=== PATIENT | female | born 1935 | race Caucasian/White ===

== ENCOUNTER 2016-07-09 06:56 | Day surgery (SDC) | payer OTHER ==
--- NOTE | ~2016-07-09 | EGD ---
EGD REPORT [place] [address] [place] [address] NAME: PERRY WHEELER : [birth year] STATUS : REG [facility] [place] PAT#: [id number] AGE: 80 ADM/REG DATE : 07/09/16 MR#: [id number] REPORT SERV DATE: 07/09/16 DICTATED BY: BIJAL GIL DATE: 07/09/16 REPORT STATUS : Draft [facility]: [facility] DATE: 07/09/16 Endoscopy Center Patient Name: Perry Wheeler Date of : 1935 Attending MD: BIJAL GIL MD Procedure Date No Time: 07/09/2016 Procedure: Upper GI endoscopy Indications: Dysphagia Referring MD: NOAH BOLIVAR Medicines: as per anesthesia Complications: No immediate complications. Procedure: Pre-Anesthesia Assessment: - ASA Grade Assessment: III - A patient with severe systemic disease. After obtaining informed consent, the endoscope was passed under direct vision. Throughout the procedure, the patient's blood pressure, pulse, and oxygen saturations were monitored continuously. The GIF H190 [id number] was introduced through the mouth, and advanced to the third part of duodenum. The upper GI endoscopy was accomplished without difficulty. The patient tolerated the procedure. Findings: The examined esophagus was normal. The scope was withdrawn. Dilation was performed with a Palmer dilator with no resistance at 44 Fr. Localized mild inflammation characterized by erythema was found in the gastric antrum. Biopsies were taken with a cold forceps for histology. The cardia and gastric fundus were normal on retroflexion. The examined duodenum was normal. Impression: - Normal esophagus. Dilated. - Gastritis. Biopsied. - Normal examined duodenum. Recommendation: - Await pathology results. Procedure Code(s): --- Professional --- 21238, Esophagogastroduodenoscopy, flexible, transoral; with biopsy, single or multiple 38332, Dilation of esophagus, by unguided sound or bougie, single or multiple passes Diagnosis Code(s): --- Professional --- K29.70, Gastritis, unspecified, without bleeding EGD REPORT [place] [address] [id number] NAME: PERRY WHEELER : [birth year] STATUS : REG [facility] [place] PAT#: [id number] AGE: 80 ADM/REG DATE : 07/09/16 MR#: [id number] REPORT SERV DATE: 07/09/16 DICTATED BY: BIJAL GIL. DATE: 07/09/16 REPORT STATUS : Draft TRANSCRIBED BY: [employer] DATE: 07/09/16 R13.10, Dysphagia, unspecified CPT copyright 2013 [employer]. All rights reserved. The codes documented in this report are preliminary and upon surgical coder review may be revised to meet current compliance requirements. BIJAL GIL MD 07/09/2016 8:20 AM This report has been signed electronically. Number of Addenda: 0 Note Initiated On: 07/09/2016 8:04 AM Scope Withdrawal Time 0 hours 0 minutes 0 seconds [id number] [id number]
--- NOTE | ~2016-07-09 | EGD ---
EGD REPORT [facility] [address] [place] [address] NAME: PERRY MATHEW : [birth year] STATUS : REG [facility] [place] PAT#: [id number] AGE: 80 ADM/REG DATE : 07/09/16 MR#: [id number] REPORT SERV DATE: 07/09/16 DICTATED BY: BIJAL GIL DATE: 07/09/16 REPORT STATUS : Draft [facility]IB[facility]: [facility] DATE: 07/09/16 Endoscopy Center Patient Name: Perry Mathew Date of : 1935 Attending MD: BIJAL GIL MD Procedure Date No Time: 07/09/2016 Procedure: Colonoscopy Indications: Rectal bleeding Referring MD: NOAH BOLIVAR Medicines: as per anesthesia Complications: No immediate complications. Procedure: Pre-Anesthesia Assessment: - ASA Grade Assessment: III - A patient with severe systemic disease. After I obtained informed consent, the scope was passed under direct vision. Throughout the procedure, the patient's blood pressure, pulse, and oxygen saturations were monitored continuously. The PCF [id number] was introduced through the anus and advanced to the cecum, identified by appendiceal orifice and ileocecal valve. The colonoscopy was somewhat difficult due to multiple diverticula in the colon and a tortuous colon. The patient tolerated the procedure. The quality of the bowel preparation was adequate to identify polyps. Findings: The perianal and digital rectal examinations were normal. Many small and large-mouthed diverticula were found in the sigmoid colon, in the descending colon, in the transverse colon and in the ascending colon. Internal hemorrhoids were found during endoscopy and were mild. Impression: - Diverticulosis in the sigmoid colon, in the descending colon, in the transverse colon and in the ascending colon. - Internal hemorrhoids. Recommendation: - Continue present medications. Procedure Code(s): --- Professional --- 20595, Colonoscopy, flexible, proximal to splenic flexure; diagnostic, with or without collection of specimen(s) by brushing or washing, with or without colon decompression (separate procedure) EGD REPORT [facility] [address] [place]. [address] NAME: PERRY MATHEW : [birth year] STATUS : REG [facility] [place] PAT#: [id number] AGE: 80 ADM/REG DATE : 07/09/16 MR#: [id number] REPORT SERV DATE: 07/09/16 DICTATED BY: BIJAL GIL DATE: 07/09/16 REPORT STATUS : Draft TRANSCRIBED BY: [employer] DATE: 07/09/16 Diagnosis Code(s): --- Professional --- K64.8, Other hemorrhoids K57.30, Diverticulosis of large intestine without perforation or abscess without bleeding K62.5, Hemorrhage of anus and rectum CPT copyright 2013 [employer]. All rights reserved. The codes documented in this report are preliminary and upon hydraulic specialist review may be revised to meet current compliance requirements. BIJAL GIL MD 07/09/2016 8:43 AM This report has been signed electronically. Number of Addenda: 0 Note Initiated On: 07/09/2016 8:00 AM Scope Withdrawal Time 0 hours 9 minutes 19 seconds [address] [place] [address]
[~2016-07-09 06:56] MED LIST: ADVIL PO; ASAB PO; CYANO1000T PO; FLECAINIDE100 MG PO; FORTAMET500 MG PO; GLUCOTRO10; GLUCOTROL5 PO; GLUMETZA500 MG PO; I-PRIN200 MG PO; LOP25 PO; LOTE20 PO; LOTENSIN HCT1 TA2 PO; NORCO1 TAB PO; OCEAN NAS; PRILO PO; PRILOSEC40 MG PO; PRIN20 PO; SINGULAIR1 PO; SYMBICORT 160/41 INH INH; THERA TEARS EYE OPH; VITAMIN B-122500 MCG SL; VITAMIN B-625 MG PO; VITAMIN D1000 UNI1 PO; VITAMIN D31000 UNIT PO; VITAMIN D400 UNI1 PO; ZOCOR40 PO
== END 2016-07-09 23:59 | disposition home or self-care (01) ==
LOC: DMU 06:56
PROVIDERS: Internal Medicine Gastroenterology
PROC: 0DB68ZX Excision of Stomach, Via Natural or Artificial Opening Endoscopic, Diagnostic (ICD-10-PCS; principal; 2016-07-09 09:00)
PROC: 0D757ZZ Dilation of Esophagus, Via Natural or Artificial Opening (ICD-10-PCS; 2016-07-09 09:00)
PROC: 0DJD8ZZ Inspection of Lower Intestinal Tract, Via Natural or Artificial Opening Endoscopic (ICD-10-PCS; 2016-07-09 09:00)
DX: K29.70 Gastritis, unspecified, without bleeding (principal); R13.10 Dysphagia, unspecified; K64.8 Other hemorrhoids; I10 Essential (primary) hypertension; K57.30 Diverticulosis of large intestine without perforation or abscess without bleeding; K21.9 Gastro-esophageal reflux disease without esophagitis; K62.5 Hemorrhage of anus and rectum; H91.90 Unspecified hearing loss, unspecified ear; M47.892 Other spondylosis, cervical region; M25.561 Pain in right knee; E78.00 Pure hypercholesterolemia, unspecified; I49.9 Cardiac arrhythmia, unspecified; J44.9 Chronic obstructive pulmonary disease, unspecified; M19.90 Unspecified osteoarthritis, unspecified site; Z90.710 Acquired absence of both cervix and uterus; Z91.041 Radiographic dye allergy status; Z88.2 Allergy status to sulfonamides; Z86.19 Personal history of other infectious and parasitic diseases; Z96.1 Presence of intraocular lens; Z79.899 Other long term (current) drug therapy
CPT/HCPCS: 82962; 88305